=== PATIENT | male | born 1960 | race Caucasian/White ===

== ENCOUNTER → 2017-05-18 | Outpatient (CLI) | payer OTHER ==
--- NOTE | 2017-05-18 11:52 | XR ---
EXAMINATION TYPE: XR foot complete LT DATE OF EXAM: 05/18/2017 COMPARISON: NONE HISTORY: Pain TECHNIQUE: Three views are submitted. FINDINGS: Postsurgical change first digit. Severe arthropathy first MTP joint. Calcaneal spur noted. Arthropath y of the tarsometatarsal junction. IMPRESSION: 1. No acute fracture or dislocation. If symptoms persist, follow-up exam in 7 to 10 days could be ob tained.
== END | disposition home or self-care (01) ==
LOC: RADXRMAIN 11:22
PROVIDERS: ATTEND Podiatrist Foot Surgery
DX: S92.314 Nondisplaced fracture of first metatarsal bone, right foot (principal); M19.272 Secondary osteoarthritis, left ankle and foot

== ENCOUNTER 2021-01-18 22:03 | Emergency (ER) | payer BC ==
[2021-01-18] MEDS ORDERED: ACETAMINOPHEN TAB 500 MG TAB PO STA (22:19)
[2021-01-18] MEDS ORDERED: SODIUM CHLORIDE 0.9% 1,000 ML IV STA (22:20)
[2021-01-18] MEDS ORDERED: MORPHINE SULFATE 4 MG/ML SYRINGE IVP STA (22:20)
[2021-01-18] MEDS ORDERED: KETOROLAC 15 MG/ML 1 ML VIAL IVP STA (22:20)
[2021-01-18 22:24] VITALS: BP 136/78; PULSE 80; RESP 16; TEMP 100.3
--- NOTE | 2021-01-18 23:12 | ED ---
General Adult HPI - General Chief complaint: Abdominal Pain Stated complaint: Dizziness Time Seen by Provider: 01/18/21 22:11 Source: patient, RN notes reviewed Mode of arrival: ambulatory Limitations: no limitations - History of Present Illness Initial comments: Patient is a 60-year-old male presenting to the emergency Department with complaints of nausea and vomiting, fatigue and lightheadedness. Patient has been having viral type symptoms over the past 4-5 days. His tested positive for cold a few days before his symptoms began. He has not been tested yet. He has been coughing, his appetite has been lower. He has not had a cold with vaccine. He denies any chest pain or shortness of breath at this time. He has been taking Tylenol for his fevers. He did not take anything in the last 4- 5 hours. He denies any abdominal pain. He has no further complaints. Upon arrival to the ER, his temperature is 100.3, rest of vitals normal. - Related Data Allergies Allergy/AdvReac Type Severity Reaction Status Date / Time No Known Allergies Allergy Verified 01/19/21 01:24 Review of Systems ROS Statement: Those systems with pertinent positive or pertinent negative responses have been documented in the HPI. ROS Other: All systems not noted in ROS Statement are negative. Past Medical History Additional Past Medical History / Comment(s): partial amputation right thumb History of Any Multi-Drug Resistant Organisms: None Reported Additional Past Surgical History / Comment(s): scope on left knee, Past Psychological History: No Psychological Hx Reported Smoking Status: Never smoker Past Alcohol Use History: Occasional Past Drug Use History: None Reported General Exam - General Exam Comments Initial Comments: GENERAL: Patient is well-developed and well-nourished. Patient is nontoxic and in no acute distress. HEAD: Atraumatic, normocephalic. EYES: Pupils equal round and reactive to light, extraocular movements intact, sclera anicteric, conjunctiva are normal. Eyelids were unremarkable. ENT: TMs normal, nares patent, oropharynx clear without exudates. Moist mucous membranes. NECK: Normal range of motion, supple without lymphadenopathy or JVD. LUNGS: Unlabored respirations. Breath sounds clear to auscultation bilaterally and equal. No wheezes rales or rhonchi. HEART: Regular rate and rhythm without murmurs, rubs or gallops. ABDOMEN: Soft, nontender, normoactive bowel sounds. No guarding, no rebound. No masses appreciated. MUSCULOSKELETAL: Normal extremities with adequate strength and normal range of motion, no pitting or edema. No clubbing or cyanosis. NEUROLOGICAL: Patient is alert and oriented x 3. SKIN: Warm, Dry, normal turgor, no rashes or lesions noted. Limitations: no limitations Course Vital Signs 01/18/21 22:11 Temperature 100.3 F H Pulse Rate 80 Respiratory 16 Rate Blood Pressure 136/78 O2 Sat by Pulse 96 Oximetry Medical Decision Making - Medical Decision Making Patient is a 60-year-old male here with covid-type symptoms over the past 4-5 days. Having nausea and vomiting, lightheadedness. His vital signs are stable, his exam is unremarkable. Labs show some dehydration. Patient was given fluids , Zofran and Toradol. He also qualified for monoclonal antibodies, he received these without adverse side effects. He is stable for discharge. He was sent home with some Zofran for any additional nausea. He can follow up with his primary care. He is agreeable to this plan of care and he is stable for discharge. - Lab Data Result diagrams: 01/18/21 23:00 01/18/21 23:00 Lab Results 01/18/21 01/18/21 Range/Units 23:00 23:00 WBC 7.2 (3.8-10.6) k/uL RBC 5.52 (4.30-5.90) m/uL Hgb 16.3 (13.0-17.5) gm/dL Hct 48.2 (39.0-53.0) % MCV 87.4 (80.0-100.0) fL MCH 29.6 (25.0-35.0) pg MCHC 33.9 (31.0-37.0) g/dL RDW 13.1 (11.5-15.5) % Plt Count 183 (150-450) k/uL MPV 9.0 Neutrophils % 76 % Lymphocytes % 18 % Monocytes % 3 % Eosinophils % 0 % Basophils % 1 % Neutrophils # 5.5 (1.3-7.7) k/uL Lymphocytes # 1.3 (1.0-4.8) k/uL Monocytes # 0.2 (0-1.0) k/uL Eosinophils # 0.0 (0-0.7) k/uL Basophils # 0.1 (0-0.2) k/uL Sodium 132 L (137-145) mmol/L Potassium 4.3 (3.5-5.1) mmol/L Chloride 96 L (98-107) mmol/L Carbon Dioxide 21 L (22-30) mmol/L Anion Gap 15 mmol/L BUN 31 H (9-20) mg/dL Creatinine 1.39 H (0.66-1.25) mg/dL Est GFR (CKD-EPI)AfAm 63 (>60 ml/min/1.73 sqM) Est GFR (CKD-EPI)NonAf 55 (>60 ml/min/1.73 sqM) Glucose 137 H (74-99) mg/dL Calcium 8.8 (8.4-10.2) mg/dL Total Bilirubin 0.6 (0.2-1.3) mg/dL AST 96 H (17-59) U/L ALT 88 H (4-49) U/L Alkaline Phosphatase 99 (38-126) U/L Total Protein 8.1 (6.3-8.2) g/dL Albumin 4.7 (3.5-5.0) g/dL Disposition Clinical Impression: COVID-19, Dehydration Disposition: HOME SELF-CARE Condition: Stable Instructions (If sedation given, give patient instructions): Coronavirus Disease 2019 (COVID-19) Additional Instructions: Please return to the Emergency Department if symptoms worsen or any other concerns. May take zofran for every 8 hours as needed for any nausea or vomiting. Increase your fluid intake. Follow-up with your primary care. Is patient prescribed a controlled substance at d/c from ED?: No Referrals: Nonstaff,Physician [Primary Care Provider] - 1-2 days Time of Disposition: 01:07
[2021-01-18 23:30] LABS: Basophils # (A) 0.1 k/uL (0-0.2); Basophils % (A) 1 %; Eosinophils % (A) 0 %; HCT 48.2 % (39.0-53.0); HGB 16.3 gm/dL (13.0-17.5); Lymphocytes # (A) 1.3 k/uL (1.0-4.8); Lymphocytes % (A) 18 %; MCH 29.6 pg (25.0-35.0); MCHC 33.9 g/dL (31.0-37.0); MCV 87.4 fL (80.0-100.0); Monocytes # (A) 0.2 k/uL (0-1.0); Monocytes % (A) 3 %; Neutrophils # (A) 5.5 k/uL (1.3-7.7); Neutrophils % (A) 76 %; Platelet Count 183 k/uL (150-450); RBC 5.52 m/uL (4.30-5.90); RDW 13.1 % (11.5-15.5); WBC 7.2 k/uL (3.8-10.6)
[2021-01-18] MEDS ORDERED: ONDANSETRON 4 MG/2 ML VIAL IVP STA (23:45)
[2021-01-18] MEDS ORDERED: SODIUM CHLORIDE 0.9% 50 ML IVPB ONE (23:45)
[2021-01-18 23:48] LABS: Albumin 4.7 g/dL (3.5-5.0); Calcium 8.8 mg/dL (8.4-10.2); Potassium 4.3 mmol/L (3.5-5.1); Total Bilirubin 0.6 mg/dL (0.2-1.3); Total Protein 8.1 g/dL (6.3-8.2)
[2021-01-19] MEDS ORDERED: CASIRIVIMAB/IMDEVIMAB (EUA) 1,200 MG in SODIUM CHLORIDE 0.9% 100 ML IVPB ONE ×2
[2021-01-19] MEDS ORDERED: ONDANSETRON 4 MG ODT STARTER PACK 2 TAB BTL PO STA (00:45)
== END 2021-01-19 01:59 | disposition home or self-care (01) ==
LOC: EC 22:03
DX: U07.1 COVID-19 (principal); E86.0 Dehydration
CPT/HCPCS: 99284; 96365; 96366; 36415; 80053; 85025; S0119; Q0243